=== PATIENT | female | born 1970 | race African-American/Black ===

== ENCOUNTER → 2021-07-30 14:13 | Outpatient (CLI) | payer OTHER, MEDICARE, SELFPAY ==
--- NOTE | ~2021-07-30 | MR_ITS ---
EXAMINATION: MR brain/brain stem wo/w con DATE: 07/30/2021 15:40 INDICATION: Benign neoplasm of pituitary gland. TECHNIQUE: Magnetic resonance imaging (MRI) of the brain and brainstem was performed without and with 20 mL MultiHance intravenous contrast. COMPARISON: None. FINDINGS: The sella is enlarged, and the pituitary height is 3 mm, consistent with an empty sella. Th ere is no abnormal mass. The infundibulum is at midline. There is no intrarenal hemorrhage or acute i schemic infarct. The ventricles are normal in size. There is mucosal thickening in the paranasal sinu ses. The mastoid air cells are normal. The orbits are normal. IMPRESSION: 1. Empty sella. Reviewed, dictated and finalized at location A. IMPRESSION: 1. Empty sella.
[2021-07-30 15:06] LABS: Estimated Glomerular Filt Rate > 60
== END ==
PROVIDERS: PCP Family Medicine Sports Medicine
DX: D35.2 Benign neoplasm of pituitary gland (principal)
CPT/HCPCS: 70553; A9577

== ENCOUNTER 2023-11-12 09:47 | Emergency (ER) | payer MEDICARE, SELFPAY ==
--- NOTE | 2023-11-12 10:47 | PC.NURSE ---
pt LWBS d/t wait time
== END 2023-11-12 10:47 | disposition left against medical advice (07) ==
LOC: ANHED 10:51
PROVIDERS: PCP Family Medicine Sports Medicine
DX: R06.00 Dyspnea, unspecified (principal)
CPT/HCPCS: 99199